=== PATIENT | female | born 1980 | race Two or more races ===

== ENCOUNTER 2023-04-14 11:00 | Outpatient (CLI) | payer OTHER | END 2023-04-14 11:07 | disposition home or self-care (01) | LOC: LAB 11:00 | DX: I10 Essential (primary) hypertension (principal) ==

== ENCOUNTER 2023-06-14 09:49 | Outpatient (CLI) | payer OTHER | END 2023-06-14 10:06 | disposition home or self-care (01) | LOC: MRI 09:49 | DX: E22.1 Hyperprolactinemia (principal) | CPT/HCPCS: 70553 ==

== ENCOUNTER 2023-06-27 10:00 | Outpatient (CLI) | payer OTHER | END 2023-06-27 10:02 | disposition home or self-care (01) | LOC: LAB 10:00 | DX: E22.1 Hyperprolactinemia (principal); E78.2 Mixed hyperlipidemia; I10 Essential (primary) hypertension; E03.8 Other specified hypothyroidism; C73 Malignant neoplasm of thyroid gland; E22.0 Acromegaly and pituitary gigantism ==

== ENCOUNTER 2023-06-27 12:03 | Outpatient (CLI) | payer OTHER | END 2023-06-27 12:15 | disposition home or self-care (01) | LOC: MAMO-SONO 12:03 | PROVIDERS: ATTEND Surgery Pediatric Surgery | DX: N64.4 Mastodynia (principal); R92.2 Inconclusive mammogram ==

== ENCOUNTER 2023-08-30 10:05 | Outpatient (CLI) | payer OTHER | END 2023-08-30 10:10 | disposition home or self-care (01) | LOC: SONOGRAMA 10:05 | PROVIDERS: ATTEND Obstetrics & Gynecology | DX: R10.2 Pelvic and perineal pain (principal); N92.1 Excessive and frequent menstruation with irregular cycle ==

== ENCOUNTER 2024-01-29 09:04 | Outpatient (CLI) | payer OTHER | END 2024-01-29 09:13 | disposition home or self-care (01) | LOC: SONOGRAMA 09:04 | PROVIDERS: ATTEND Obstetrics & Gynecology | DX: N84.0 Polyp of corpus uteri (principal) ==

== ENCOUNTER → 2025-07-07 09:05 | Outpatient (CLI) | payer OTHER ==
[2025-07-07 10:04] LABS: BASO % 0.7 % (0.1-1.2); EOS # 0.08 (0.04-0.54); EOS % 1.1 % (0.7-7.0); LYMPH # 2.32 (1.18-3.74); LYMPH % 32.5 % (19.3-53.1); MEAN PLATELET VOLUME 8.80 fl (9.4-12.4); MONO # 0.36 (0.24-0.82); MONO % 5.0 % (4.7-12.5); NEUT # 4.30 (1.56-6.13); NEUT % 60.4 % (34.0-71.1); RED CELL DISTRIBUTION WIDTH 14.2 % (11.6-14.4)
[2025-07-07 10:15] LABS: URINE APPEARANCE Clear; URINE BILIRRUBIN Negative (NEGATIVE); URINE BLOOD Negative; URINE COLOR Yellow; URINE GLUCOSE Negative (NEGATIVE); URINE KETONE Negative (NEGATIVE); URINE LEUKOCYTE Negative; URINE NITRATE Negative; URINE PROTEIN Negative (NEGATIVE); URINE UROBILINOGEN 0.2 E.U./dl
[2025-07-07 10:16] LABS: URINE BACTERIA 70.7 uL (0.0-1933); URINE EPITHELIAL CELLS 2.7 uL (0.0-38.8); URINE RBC 15.8 uL (0.0-20.8)
[2025-07-07 10:30] LABS: URINE CAST 0.00 uL (0.0-1.40); URINE WBC 1.0 uL (0.0-23.2)
[2025-07-07 10:40] LABS: ALT/SGPT 53.0 U/L (12-78); AST/SGOT 32.0 U/L (15-37); BILIRUBIN TOTAL 0.63 mg/dL (0.3-1.2); BUN CREA RATIO 17.0 (7.0-25.0); CHOL HDL RATIO 2.8 (0-5.0); CREATININE SERUM 0.65 mg/dL (0.55-1.02); GFR 98.13; GLOBULINA 4.2 G/DL (2.4-3.5); GLUCOSE FASTING 81.0 mg/dL (65-100); HDL 70.0 mg/dl (40-60); LDL 117.0 mg/dl (0-130); OSMOLALITY SERUM 278.0 MOSM/KG (275-295); T3 UPTAKE 29.0 % (30-39); T4 TOTAL 7.35 UG/DL (4.8-13.9); TSH 1.84 uIU/mL (0.358-3.74); VLDL 12.0 (0-39)
[2025-07-09 05:07] LABS: DHEA-SULFATE 135.0 ug/dL (41.2-243.7); HEPATITIS C VIRUS ANTIBODY Non Reactive (Non Reactive); HSV I IGG TYPE SPECIFIC Reactive (Non Reactive); PROLACTIN 51.7 ng/mL (4.8-33.4)
[2025-07-09 09:08] LABS: ESTRADIOL SERUM 54.1 pg/mL (.)
== END | disposition home or self-care (01) ==
LOC: LAB 09:05
PROVIDERS: ATTEND Obstetrics & Gynecology
DX: A64 Unspecified sexually transmitted disease (principal); Z11.4 Encounter for screening for human immunodeficiency virus [HIV]; Z11.3 Encounter for screening for infections with a predominantly sexual mode of transmission; B00.9 Herpesviral infection, unspecified; K57.90 Diverticulosis of intestine, part unspecified, without perforation or abscess without bleeding; K76.9 Liver disease, unspecified; E03.9 Hypothyroidism, unspecified; E55.9 Vitamin D deficiency, unspecified; I10 Essential (primary) hypertension; N95.1 Menopausal and female climacteric states; E78.9 Disorder of lipoprotein metabolism, unspecified; L68.0 Hirsutism; L70.9 Acne, unspecified; K92.1 Melena; D50.0 Iron deficiency anemia secondary to blood loss (chronic); N30.00 Acute cystitis without hematuria; N39.0 Urinary tract infection, site not specified

== ENCOUNTER 2025-07-07 10:22 | Outpatient (CLI) | payer OTHER | END 2025-07-07 10:26 | disposition home or self-care (01) | LOC: MAMO-SONO 10:22 | PROVIDERS: ATTEND Obstetrics & Gynecology | DX: N64.4 Mastodynia (principal); N64.51 Induration of breast; R92.0 Mammographic microcalcification found on diagnostic imaging of breast; N63.0 Unspecified lump in unspecified breast; Z12.31 Encounter for screening mammogram for malignant neoplasm of breast; N97.1 Female infertility of tubal origin; Z31.41 Encounter for fertility testing; R10.2 Pelvic and perineal pain; N92.1 Excessive and frequent menstruation with irregular cycle ==